=== PATIENT | female | born 1975 | race Caucasian/White ===

== ENCOUNTER 2020-05-16 13:11 | Outpatient (CLI) | payer BC, SELFPAY ==
--- NOTE | ~2020-05-16 | XR_ITS ---
EXAMINATION: XR chest 2V EXAM DATE: 05/16/2020 13:47 INDICATION: Cough. TECHNIQUE: Frontal and lateral projections of the chest obtained and reviewed. There is no prior constance dy for comparison. FINDINGS: There is moderate amount of patchy bilateral peripheral predominant airspace disease most l ikely acute. Recommend considering/excluding COVID 19. Other infectious etiologies or chronic process es are also in the differential diagnosis. No pneumothorax or pleural effusion. Cardiomediastinal rianna houette is normal. There are no osseous abnormalities identified. IMPRESSION: Multifocal peripheral airspace disease, possible COVID 19 etiology. I left a message for ALEJANDRO Mccray at 05/16/2020 13:55 CDT, with my impression and contact number for any questions. Reviewed, dictated and finalized at location A. IMPRESSION: Multifocal peripheral airspace disease, possible COVID 19 etiology. I left a message for ALEJANDRO Mccray at 05/16/2020 13:55 CDT, with my i mpression and contact number for any questions.
== END 2020-05-16 13:12 ==
PROVIDERS: PCP Internal Medicine; Visit Provider Clinical Nurse Specialist
DX: R05 Cough (principal); R91.8 Other nonspecific abnormal finding of lung field
CPT/HCPCS: 71046

== ENCOUNTER → 2023-06-08 15:16 | Outpatient (CLI) | payer BC, SELFPAY ==
--- NOTE | ~2023-06-08 | MM_ITS ---
EXAMINATION: MM screening [facility] BI w nir HISTORY: Screening TECHNIQUE: Craniocaudal and mediolateral oblique 3-D tomosynthesis images were obtained and synthetic 2-D images were generated. CAD analysis was submitted and interpreted. COMPARISON: Comparison to multiple prior studies sequentially, with oldest reviewed study dated 09/2017. BREAST PARENCHYMAL COMPOSITION: There are scattered areas of fibroglandular density. FINDINGS: There is no evidence of suspicious mass, calcification, or architectural distortion to sugg est malignancy in either breast. There has been no suspicious interval change. IMPRESSION: 1. No mammographic evidence of malignancy. 2. Recommend routine screening mammography in one year. BI-RADS Category 1: Negative Reviewed, dictated and finalized at location A.
== END ==
PROVIDERS: PCP Nurse Practitioner; Visit Provider Nurse Practitioner
DX: Z12.31 Encounter for screening mammogram for malignant neoplasm of breast (principal)
CPT/HCPCS: 77063; 77067

== ENCOUNTER 2024-12-19 11:09 | Outpatient (CLI) | payer BC, SELFPAY ==
--- NOTE | ~2024-12-19 | MM_ITS ---
EXAMINATION: MM screening [facility] w nir HISTORY: Screening TECHNIQUE: Craniocaudal and mediolateral oblique 3-D tomosynthesis images were obtained and synthetic 2-D images were generated. CAD analysis was submitted and interpreted. COMPARISON: Comparison to multiple prior studies sequentially, with oldest reviewed study dated 09/2017. BREAST PARENCHYMAL COMPOSITION: Not dense: There are scattered areas of fibroglandular density. FINDINGS: There is no evidence of suspicious mass, calcification, or architectural distortion to sugg est malignancy in either breast. There has been no suspicious interval change. IMPRESSION: 1. No mammographic evidence of malignancy. 2. Recommend routine screening mammography in one year. BI-RADS Category 1: Negative Reviewed, dictated and finalized at location A.
== END 2024-12-19 11:10 | disposition home or self-care (01) ==
LOC: MICIMG 11:10
PROVIDERS: PCP Clinical Nurse Specialist; Visit Provider Obstetrics & Gynecology
DX: Z12.31 Encounter for screening mammogram for malignant neoplasm of breast (principal)
CPT/HCPCS: 77063; 77067